=== PATIENT | female | born 1990 | race Hispanic/Latino ===

== ENCOUNTER 2017-08-23 09:29 | Emergency (ER) | payer OTHER ==
[2017-08-23 11:28] LABS: Absolute Lymphocytes (CBC) 1.9 K/uL (0.7-4.9); Absolute Monocytes 0.7 K/uL (0.1-1.3); Basophils % 0.2 % (0-1.3); Eosinophils % 1.2 % (0-4.4); Hematocrit 39.8 % (36.0-45.0); Lymphocytes % 19.1 % (15.3-44.8); MCH 28.9 pg (27.0-35.0); MCV 86.7 fL (80-100); MPV 9.2 fL (7.6-11.3); Monocytes % 6.9 % (3.3-12.3)
[2017-08-23 11:38] LABS: Bicarbonate 26 mEq/L (21-31); Glucose Level 94 mg/dL (65-120); Potassium 3.7 mEq/L (3.6-5.0); Sodium Level 136 mEq/L (135-145)
[2017-08-23 11:39] LABS: BUN Blood Urea Nitrogen 9 mg/dL (6-20)
[2017-08-23 11:49] LABS: Urine Blood 2+ (NEG); Urine Glucose NEGATIVE (NEG); Urine Protein NEGATIVE (NEG)
--- NOTE | 2017-08-23 13:22 | RAD REPORT ---
EXAM DESCRIPTION: US - Transvaginal OB - 08/23/2017 1:03 pm CLINICAL HISTORY: Vaginal bleeding. COMPARISON: None. FINDINGS: A single gestational sac is seen within the uterus. The mean sac diameter is 9 mm correspo nding to 5 weeks 4 days. No yolk sac or embryo is detected at this time. Both ovaries are normal in size, shape and echotexture with normal Doppler blood flow. No adnexal mas ses. No pelvic ascites. IMPRESSION: Findings are compatible with early IUP although no yolk sac or embryo is currently seen. It is recommended the patient undergo a followup ultrasound in 7-10 days. Serial HCG levels is also s uggested.
--- NOTE | 2017-08-23 13:26 | ER ---
Nurse's Notes [facility] Name: Esperanza Ross Age: 26 yrs Sex: Female : 1990 Arrival Date: 08/23/2017 Time: 09:34 Bed 18 Private MD: None, None Diagnosis: Threatened Presentation: 08/23 09:55 Presenting complaint: Patient states: Vaginal spotting for 6 days with small clot this aj AM. Patient is 8 weeks . Transition of care: patient was not received from another setting of care. Onset of symptoms was August 10, 2017. Initial Sepsis Screen: Does the patient meet any 2 criteria? No. Patient's initial sepsis screen is negative. Does the patient have a suspected source of infection? No. Patient's initial sepsis screen is negative. Care prior to arrival: None. 09:55 Method Of Arrival: Ambulatory 09:55 Acuity: ARMAND 3 aj Triage Assessment: 09:57 General: Appears in no apparent distress. comfortable, Behavior is calm, cooperative, aj appropriate for age. Pain: Complains of pain in low back area Pain currently is 1 out of 10 on a pain scale. Neuro: Level of Consciousness is awake, alert, obeys commands, Oriented to person, place, time, situation. Respiratory: Airway is patent Respiratory effort is even, unlabored, Respiratory pattern is regular, symmetrical. : Reports vaginal bleeding that is with clots, spotty. Derm: Skin is intact, is healthy with good turgor, Skin is pink, warm \\T\\ dry. normal. 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 - Social history:: Smoking status: Patient/guardian denies using tobacco. Screenin:51 Abuse screen: Denies threats or abuse. Nutritional screening: No deficits noted. ae1 Tuberculosis screening: No symptoms or risk factors identified. Fall Risk None identified. Assessment: 11:28 Obstetrical Assessment: General assessment: awake and alert, Patient reports suprapubic ae1 pain described as "stretching". General: Appears in no apparent distress. comfortable, Behavior is calm, cooperative. Pain: Complains of pain in suprapubic area Pain currently is 2 out of 10 on a pain scale. Neuro: Level of Consciousness is awake, alert, obeys commands, Oriented to person, place, time, situation. Cardiovascular: Patient's skin is warm and dry. Cardiovascular: Heart tones S1 S2. Respiratory: Airway is patent Respiratory effort is even, unlabored, Respiratory pattern is regular, symmetrical, Breath sounds are clear bilaterally. Vital Signs: 09:57 BP 118 / 77; Pulse 85; Resp 16; Temp 98.0; Pulse Ox 98% on R/A; Weight 66.22 kg; Height aj 5 ft. 3 in. (160.02 cm); Pain 1/10; 11:35 BP 118 / 66; Pulse 82; Resp 16; Pulse Ox 100% on R/A; mh5 13:52 BP 122 / 64; Pulse 82; Resp 16; Pulse Ox 98% ; ae1 09:57 Body Mass Index 25.86 (66.22 kg, 160.02 cm) aj Vitals: 13:47 Heart Tones Please see ultrasound. ae1 ED Course: 09:34 Patient arrived in ED. mr 09:34 None, None is Private Physician. mr 09:56 Triage completed. aj 09:57 Arm band placed on left wrist. Patient placed in waiting room. aj 10:42 Isrrael Marie, ALEXIS is Primary Nurse. ae1 10:43 Michele Baum PA is PHCP. cp 10:43 Michele Orourke MD is Attending Physician. cp 10:45 Placed in gown. Bed in low position. Call light in reach. Side rails up X 1. Pulse ox ae1 on. NIBP on. Warm blanket given. 11:17 Initial lab(s) drawn, by me, sent to lab. Inserted saline lock: 20 gauge in right jl7 antecubital area, using aseptic technique. Blood collected. 11:19 Radiology exam delayed due to lab results not completed at this time. (HCG) hr test not completed at this time. 13:03 US Transvaginal Ob In Process Unspecified. EDMS 13:51 No provider procedures requiring assistance completed. IV discontinued, intact, ae1 bleeding controlled, No redness/swelling at site. Pressure dressing applied. 13:52 No provider procedures requiring assistance completed. ae1 Administered Medications: No medications were administered Point of Care Testing: Urine : 13:47 hCG Reading: Positive; ae1 Outcome: 13:25 Discharge ordered by . yesy 13:50 Patient left the ED. ae1 13:52 Discharged to home ambulatory, with significant other. ae1 13:52 Condition: stable 13:52 Discharge instructions given to patient, Instructed on discharge instructions, follow up and referral plans. medication usage, Demonstrated understanding of instructions, follow-up care, Prescriptions given X 1. Signatures: Dispatcher [employer] EDMS Kate Hein RN RN aj Rivera, Maria mr Rod, Michele Holguin PA PA cp Elliott, Andrea, RN RN ae1 Martinez, Maria [facility] Leopoldo Delgado RN RN jl7 Corrections: (The following items were deleted from the chart) 11:20 11:17 Inserted saline lock: 22 gauge in right antecubital area, using aseptic jl7 technique. Blood collected. jl7 13:49 10:45 Reassessment: Patient appears in no apparent distress at this time. Patient ae1 states feeling better. ae1
--- NOTE | 2017-08-23 13:26 | EDPHYS ---
Physician Documentation [facility] Name: Esperanza Ross Age: 26 yrs Sex: Female : 1990 Arrival Date: 08/23/2017 Time: 09:34 Bed 18 Private MD: None, None ED Physician Michele Orourke HPI: 08/23 10:49 This 26 yrs old Female presents to ER via Ambulatory with complaints of cp Vaginal Bleeding, + Preg <12wks. 10:49 The patient presents to the emergency department with vaginal bleeding, described as cp spotting. 10:50 course: care: none, Leakage of Fluid: none appreciated, Ultrasound: cp the patient has not had an ultrasound. Previous pregnancies: in previous pregnancies patient has had no complications. Associated signs and symptoms: Pertinent negatives: diarrhea, dysuria, fever, vomiting. 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 - Social history:: Smoking status: Patient/guardian denies using tobacco. ROS: 11:00 Constitutional: Negative for body aches, chills, fever, poor PO intake. cp 11:00 Eyes: Negative for injury, pain, redness, and discharge. cp 11:00 ENT: Negative for drainage from ear(s), ear pain, sore throat, difficulty swallowing, difficulty handling secretions. 11:00 Neck: Negative for pain with movement, pain at rest, stiffness, tenderness. 11:00 Cardiovascular: Negative for chest pain, edema, palpitations. 11:00 Respiratory: Negative for cough, shortness of breath, wheezing. 11:00 Abdomen/GI: Positive for abdominal pain, of the suprapubic area, Negative for nausea, vomiting, diarrhea, constipation, black/tarry stool, rectal bleeding. 11:00 Back: Negative for decreased range of motion, pain with movement, radiated pain. 11:00 : Positive for vaginal bleeding, Negative for urinary symptoms, flank pain. 11:00 Skin: Negative for cellulitis, rash. 11:00 Neuro: Negative for altered mental status, headache, weakness. 11:00 All other systems are negative. Exam: 11:07 Constitutional: The patient appears in no acute distress, alert, awake, non-toxic, well cp developed, well nourished. 11:07 Head/Face: Normocephalic, atraumatic. cp 11:07 Eyes: Periorbital structures: appear normal, Conjunctiva: normal, no exudate, no injection, Sclera: no appreciated abnormality, Lids and lashes: appear normal, bilaterally. 11:07 ENT: External ear(s): are unremarkable, Nose: is normal, Mouth: is normal, Posterior pharynx: is normal, airway is patent, no erythema, no exudate. 11:07 Chest/axilla: Inspection: normal, Palpation: is normal, no crepitus, no tenderness. 11:07 Cardiovascular: Rate: normal, Rhythm: regular. 11:07 Respiratory: the patient does not display signs of respiratory distress, Respirations: normal, no use of accessory muscles, no retractions, no splinting, no tachypnea, labored breathing, is not present, Breath sounds: are clear throughout, no decreased breath sounds, no stridor, no wheezing. 11:07 Abdomen/GI: Inspection: abdomen appears normal, Bowel sounds: active, all quadrants, Palpation: soft, in all quadrants, mild abdominal tenderness, in the suprapubic area, voluntary guarding, is not appreciated, involuntary guarding, is not appreciated. 11:07 Back: pain, is absent, ROM is normal. 11:07 Skin: cellulitis, is not appreciated, no rash present. 11:07 Neuro: Orientation: to person, place \T\ time. Mentation: is normal, Cerebellar function: is grossly normal, Motor: moves all fours, strength is normal, Sensation: is normal, Gait: is steady, at a normal pace, without difficulty. 13:22 : Pelvic Exam: The exam is refused by the patient/guardian. The risks and cp consequences are understood by the patient, Sexual behavior: the patient is sexually active, and reports a single partner, method of control is none. Vital Signs: 09:57 BP 118 / 77; Pulse 85; Resp 16; Temp 98.0; Pulse Ox 98% on R/A; Weight 66.22 kg; Height aj 5 ft. 3 in. (160.02 cm); Pain 1/10; 11:35 BP 118 / 66; Pulse 82; Resp 16; Pulse Ox 100% on R/A; mh5 13:52 BP 122 / 64; Pulse 82; Resp 16; Pulse Ox 98% ; ae1 09:57 Body Mass Index 25.86 (66.22 kg, 160.02 cm) aj MDM: 10:43 Patient medically screened. kamryn 11:00 Differential diagnosis: STD, threatened Ab, inevitable Ab, ectopic . 13:24 Data reviewed: vital signs, nurses notes, lab test result(s), radiologic studies, ultrasound, and as a result, I will discharge patient. 08/23 10:49 Order name: Quantitative Hcg 08/23 10:49 Order name: Abo/rh Typing 08/23 10:49 Order name: Basic Metabolic Panel 08/23 10:49 Order name: CBC with Diff 08/23 10:49 Order name: HCG, Quantitative; Complete Time: 13:06 [facility] 08/23 13:07 Interpretation: HCGQ 6268.0; Reviewed. 08/23 10:49 Order name: ABO/RH typing; Complete Time: 13:23 [facility] 08/23 10:49 Order name: Urine Test (obtain specimen); Complete Time: 11:07 08/23 10:49 Order name: IV Saline Lock; Complete Time: 11:21 08/23 10:49 Order name: Labs collected and sent; Complete Time: 11:21 08/23 10:49 Order name: US Transvaginal Ob; Complete Time: 13:23 08/23 10:49 Order name: Basic Metabolic Panel; Complete Time: 13:06 [facility] 08/23 10:49 Order name: CBC with Automated Diff; Complete Time: 13:06 [facility] 08/23 13:07 Interpretation: Normal except: MCV 86.7; MCH 28.9. 08/23 10:57 Order name: Urine Dipstick--Ancillary (enter results); Complete Time: 13:06 [facility] 08/23 10:57 Order name: Urine --Ancillary (enter results); Complete Time: 13:06 [facility] 08/23 10:49 Order name: NPO; Complete Time: 11:07 cp 08/23 10:49 Order name: Urine Dipstick-Ancillary (obtain specimen); Complete Time: 11:08 cp Administered Medications: No medications were administered Point of Care Testing: Urine : 13:47 hCG Reading: Positive; ae1 Disposition: 19:07 Co-signature as Attending Physician, Michele Orourke MD I agree with the assessment and [facility] plan of care. Disposition: 08/23/17 13:25 Discharged to Home. Impression: Threatened . - Condition is Stable. - Discharge Instructions: Medicines During , Threatened Miscarriage, Pelvic Rest. - Prescriptions for Vitamin 27- 0.8 mg Oral Tablet - take 1 tablet by ORAL route once daily; 60 tablet. - Medication Reconciliation Form, Thank You Letter, Antibiotic Education, Prescription Opioid Use form. 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 - Problem is new. - Symptoms are unchanged. Signatures: Dispatcher [employer] Kate Toussaint, RN Michele Rocha MD MD cha Page, Corey, PA PA sIrrael Burger RN RN ae1
[2017-08-23 13:54] VITALS: TEMP 98
[2017-08-23 13:55] VITALS: BP 118/66; O2SAT 100
== END 2017-08-23 13:50 | disposition home or self-care (01) ==
LOC: ER 09:29
DX: O20.0 Threatened abortion (principal); Z3A.13 13 weeks gestation of pregnancy
CPT/HCPCS: 36415; 76817; 80048; 81003; 81025; 84702; 85025; 86900; 86901; 99284

== ENCOUNTER 2017-08-26 21:00 | Emergency (ER) | payer OTHER ==
[2017-08-26 22:08] LABS: Absolute Lymphocytes (CBC) 2.9 K/uL (0.7-4.9); Absolute Monocytes 0.9 K/uL (0.1-1.3); Absolute Neutrophil 7.2 K/uL (1.8-8.0); Basophils % 0.2 % (0-1.3); Eosinophils % 1.6 % (0-4.4); Hematocrit 41.6 % (36.0-45.0); Lymphocytes % 25.5 % (15.3-44.8); MCH 28.2 pg (27.0-35.0); MPV 9.6 fL (7.6-11.3); Monocytes % 8.3 % (3.3-12.3); RBC Red Blood Cell Count 4.78 M/uL (3.86-4.86)
[2017-08-26 22:30] LABS: Blood Morphology Comment NOT SEEN (NOT SEEN); Platelet Estimate ADEQ; Urine White Blood Cell Casts OK
--- NOTE | 2017-08-27 00:31 | EDPHYS ---
Physician Documentation [facility] Name: Esperanza Ross Age: 26 yrs Sex: Female : 1990 Arrival Date: 08/26/2017 Time: 21:03 Bed 26 Private MD: ED Physician Gilbert Jeffrey HPI: 08/26 21:44 This 26 yrs old Female presents to ER via Ambulatory with complaints of kb Vaginal Bleeding, + Preg <12wks. 21:44 The patient presents to the emergency department with vaginal bleeding, that is light. kb course: care: private OB physician, Dr. kemp, first appt scheduled, has not seen her yet, Leakage of Fluid: none appreciated, Ultrasound: the patient had an ultrasound, on August 23, 2017, which was normal, Risk/complications: no obvious risks or complications are appreciated. Previous pregnancies: in previous pregnancies patient has had. Associated signs and symptoms: Pertinent positives: abdominal pain, vaginal bleeding. The patient has not experienced similar symptoms in the past. The patient has been recently seen at the [facility] Emergency Department, this week, for similar complaints. 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 - Social history:: Smoking status: Patient/guardian denies using tobacco. ROS: 21:44 Constitutional: Negative for fever, chills, and weight loss, Cardiovascular: Negative kb for chest pain, palpitations, and edema, Respiratory: Negative for shortness of breath, cough, wheezing, and pleuritic chest pain, Back: Negative for injury and pain, MS/Extremity: Negative for injury and deformity, Skin: Negative for injury, rash, and discoloration, Neuro: Negative for headache, weakness, numbness, tingling, and seizure. 21:44 Abdomen/GI: Positive for abdominal pain, Negative for nausea, vomiting, and diarrhea, constipation, abdominal cramps, abdominal distension, anorexia. 21:44 : Positive for vaginal bleeding. Exam: 21:44 Constitutional: This is a well developed, well nourished patient who is awake, alert, kb and in no acute distress. Head/Face: Normocephalic, atraumatic. Chest/axilla: Normal chest wall appearance and motion. Nontender with no deformity. No lesions are appreciated. Cardiovascular: Regular rate and rhythm with a normal S1 and S2. No gallops, murmurs, or rubs. Normal PMI, no JVD. No pulse deficits. Respiratory: Lungs have equal breath sounds bilaterally, clear to auscultation and percussion. No rales, rhonchi or wheezes noted. No increased work of breathing, no retractions or nasal flaring. Abdomen/GI: Soft, non-tender, with normal bowel sounds. No distension or tympany. No guarding or rebound. No evidence of tenderness throughout. Skin: Warm, dry with normal turgor. Normal color with no rashes, no lesions, and no evidence of cellulitis. MS/ Extremity: Pulses equal, no cyanosis. Neurovascular intact. Full, normal range of motion. Neuro: Awake and alert, GCS 15, oriented to person, place, time, and situation. Cranial nerves II-XII grossly intact. Motor strength 5/5 in all extremities. Sensory grossly intact. Cerebellar exam normal. Normal gait. 23:34 : Pelvic Exam: External exam: is normal, Speculum exam: mild bleeding, no cervicitis, kb os that is open, no tissue in cervix is seen, no tissue in vagina is seen, discharge, bloody, the nurse was present for the exam. Vital Signs: 21:16 BP 127 / 100; Pulse 86; Resp 19; Temp 97.4; Pulse Ox 100% on R/A; Weight 66.22 kg; la1 Height 5 ft. 3 in. (160.02 cm); 23:39 BP 119 / 65; Pulse 62; Resp 16; Temp 97.6(O); Pulse Ox 100% on R/A; Pain 2/10; ak1 21:16 Body Mass Index 25.86 (66.22 kg, 160.02 cm) la1 MDM: 21:39 Patient medically screened. kb 21:44 Data reviewed: vital signs, nurses notes. Data interpreted: Pulse oximetry: on room air kb is 100 %. Interpretation: normal. 08/27 00:20 Physician consultation: Rocky Durbin MD was called at 00:20, left voicemail. kb 00:29 Counseling: I had a detailed discussion with the patient and/or guardian regarding: the kb historical points, exam findings, and any diagnostic results supporting the discharge/admit diagnosis, lab results, radiology results, the need for outpatient follow up, an OB/Gyne specialist, to return to the emergency department if symptoms worsen or persist or if there are any questions or concerns that arise at home. Physician consultation: Rocky Durbin MD was contacted at 00:29, regarding consult, patient's condition, recommended cytotec 100mcg PO q 6 hours x 4 doses and outpatient follow up . 08/26 21:44 Order name: CBC with Diff; Complete Time: 22:43 kb 08/26 21:44 Order name: Quantitative Hcg; Complete Time: 22:56 kb 08/26 22:30 Order name: CBC Smear Scan; Complete Time: 22:43 EDMS 08/26 23:02 Order name: US Transvaginal Ob kb 08/26 23:02 Order name: Pelvic Exam Setup; Complete Time: 23:32 kb Administered Medications: No medications were administered Point of Care Testing: Urine : 00:43 N/A ak1 Disposition: 03:14 Co-signature as Attending Physician, Gilbert Jeffrey MD I agree with the assessment and tw4 plan of care. Disposition: 08/27/17 00:31 Discharged to Home. Impression: Incomplete spontaneous without complication. - Condition is Stable. - Discharge Instructions: Incomplete Miscarriage. - Prescriptions for Cytotec 100 mcg Oral tablet - take 1 tablet by ORAL route every 6 hours; 4 tablet. - Medication Reconciliation Form, Thank You Letter, Antibiotic Education, Prescription Opioid Use form. - Follow up: Emergency Department; When: As needed; Reason: Worsening of condition. Follow up: Rocky Durbin MD; When: 1 - 2 days; Reason: Recheck today's complaints. Follow up: Hilary Kepm MD; When: 1 - 2 days; Reason: Recheck today's complaints. Signatures: Dispatcher [employer] EDTX Diandra Root, SANDRA-C SHELTER MONITOR-Erickson Manning RN RN la1 Bhavana Bull RN RN ak1 Gilbert Jeffrey MD MD tw4
--- NOTE | 2017-08-27 00:31 | ER ---
Nurse's Notes [facility] Name: Esperanza Ross Age: 26 yrs Sex: Female : 1990 Arrival Date: 08/26/2017 Time: 21:03 Bed 26 Private MD: Diagnosis: Incomplete spontaneous without complication Presentation: 08/26 21:15 Presenting complaint: Patient states: About 3 weeks ago I had vaginal bleeding but it la1 is getting worse and my OB pushed my appointment back. Transition of care: patient was not received from another setting of care. Onset of symptoms was August 26, 2017. Initial Sepsis Screen: Does the patient meet any 2 criteria? No. Patient's initial sepsis screen is negative. Does the patient have a suspected source of infection? No. Patient's initial sepsis screen is negative. Care prior to arrival: None. 21:15 Method Of Arrival: Ambulatory la1 21:15 Acuity: ARMAND 3 la1 Triage Assessment: 22:01 General: Appears in no apparent distress. Behavior is calm, cooperative. Pain: Denies ak1 pain. EENT: No signs and/or symptoms were reported regarding the EENT system. Neuro: No deficits noted. Cardiovascular: No deficits noted. Respiratory: No deficits noted. GI: No signs and/or symptoms were reported involving the gastrointestinal system. : Reports vaginal bleeding that is bright red, with clots, moderate flow. Derm: No signs and/or symptoms reported regarding the dermatologic system. Musculoskeletal: No signs and/or symptoms reported regarding the musculoskeletal system. 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 - Social history:: Smoking status: Patient/guardian denies using tobacco. Screenin:46 Abuse screen: Denies threats or abuse. Denies injuries from another. Nutritional ak1 screening: No deficits noted. Tuberculosis screening: No symptoms or risk factors identified. Fall Risk None identified. Assessment: 23:32 Obstetrical Assessment: General assessment: awake and alert, skin warm and dry. ak1 Reassessment: Patient appears in no apparent distress at this time. No changes from previously documented assessment. Patient is alert, oriented x 3, equal unlabored respirations, skin warm/dry/pink. Vital Signs: 21:16 BP 127 / 100; Pulse 86; Resp 19; Temp 97.4; Pulse Ox 100% on R/A; Weight 66.22 kg; la1 Height 5 ft. 3 in. (160.02 cm); 23:39 BP 119 / 65; Pulse 62; Resp 16; Temp 97.6(O); Pulse Ox 100% on R/A; Pain 2/10; ak1 21:16 Body Mass Index 25.86 (66.22 kg, 160.02 cm) la1 Vitals: 23:32 Heart Tones N/A. ak1 ED Course: 21:03 Patient arrived in ED. es 21:15 Diandra Root FNP-C is PHCP. kb 21:15 Gilbert Jeffrey MD is Attending Physician. kb 21:16 Triage completed. la1 21:18 Arm band placed on right wrist. la1 21:45 Bhavana Bull, RN is Primary Nurse. ak1 22:03 Patient has correct armband on for positive identification. Bed in low position. Call ak1 light in reach. Side rails up X 1. Adult w/ patient. 23:33 Assist provider with pelvic exam: Set up pelvic tray. Performed by Diandra AVALOS Patient tolerated well. 08/27 00:11 US Transvaginal Ob In Process Unspecified. EDMS 00:11 Ultrasound completed. Patient tolerated well. Notified TRAY CHECKER/PA prelim given to ordering cy provider. . 00:31 Rocky Durbin MD is Referral Physician. kb 00:31 Hilary Son MD is Referral Physician. kb 00:44 Patient did not have IV access during this emergency room visit. ak1 Administered Medications: No medications were administered Point of Care Testing: Urine : 00:43 N/A ak1 Outcome: 00:31 Discharge ordered by . kb 00:44 Discharged to home ambulatory, with family. ak1 00:44 Condition: good 00:44 Discharge instructions given to patient, Instructed on discharge instructions, follow up and referral plans. medication usage, Demonstrated understanding of instructions, follow-up care, medications, Prescriptions given X 1. 00:44 Patient left the ED. ak1 Signatures: Dispatcher [employer] EDHI Dk Diandra, SHOE REPAIRER APPRENTICE-C SHOE REPAIRER APPRENTICE-Ckb Jocelyne Elise Lee RN RN la1 Bhavana Bull RN RN ak1 Hernandez Booth
[2017-08-27 01:02] VITALS: O2SAT 100
[2017-08-27 01:04] VITALS: BP 119/65; TEMP 97.6
--- NOTE | 2017-08-27 08:02 | RAD REPORT ---
EXAM DESCRIPTION: US - Transvaginal OB - 08/27/2017 12:11 am CLINICAL HISTORY: with abdominal pain and vaginal bleeding COMPARISON: August 23, 2017 FINDINGS: The uterus is retroverted and measures 7 x 5 x 6 centimeters. A gestational sac is presen t within the endometrium. The sac measures 1.1 x 1.1 x 1.1 centimeters. A pole is not seen. A y olk sac is not visualized. A small subchorionic bleed measures 9 x 3 millimeters. The ovaries are normal in size and echotexture. No significant free fluid is seen. IMPRESSION: These findings most likely represent an intrauterine with an estimated gestati onal age 5 weeks 5 days SITA 04/23/2018. A pole/yolk sac is not seen. It is recommended that the patient have serial beta HCG levels and a follow up ultrasound in 1 week for reassessment.
== END 2017-08-27 00:44 | disposition home or self-care (01) ==
LOC: ER 21:00
DX: O03.4 Incomplete spontaneous abortion without complication (principal)
CPT/HCPCS: 36415; 76817; 84702; 85025; 99284

== ENCOUNTER 2018-11-21 03:24 | Inpatient (IN) | payer OTHER ==
--- OUTSIDE RECORDS SUMMARY | 2018-11-21 07:45 | XMS REPORT ---
:1990 Author Organization [employer] Care Team Providers Name Role Phone Hilary Son Provider Role Unavailable Allergies No Known Allergies Problems Problem Type Condition Code Onset Dates Condition Status Problem Threatened O20.0 Active Problem Personal history of pre-term labor Z87.51 Active Medications No Known Medications Results No Known Results Summary Purpose [employer] Submission
--- OUTSIDE RECORDS SUMMARY | 2018-11-21 07:45 | XMS REPORT ---
:1990 Author Organization eClinicalWorks Care Team Providers Name Role Phone Devang Huitron Provider Role Unavailable Allergies No Known Allergies Problems Problem Type Condition Code Onset Dates Condition Status Problem Threatened O20.0 Active Problem Personal history of pre-term labor Z87.51 Active Medications Medication Code System Code Instructions Start End Date Status Dosage Date Ferralet 90 [facility] [id number] 90-1 MG Orally September 16, Active 1 tablet Once a day 2018 Results No Known Results Summary Purpose eClinicalWorks Submission
--- OUTSIDE RECORDS SUMMARY | 2018-11-21 07:45 | XMS REPORT ---
:1990 Author Organization eClinicalWorks Care Team Providers Name Role Phone Devang Huitron Provider Role Unavailable Allergies No Known Allergies Problems Problem Type Condition Code Onset Dates Condition Status Problem Threatened O20.0 Active Problem Personal history of pre-term labor Z87.51 Active Assessment High risk due to history O09.212 Active of labor in second trimester Medications Medication Code Code Instructions Start End Status Dosage System Date Date CitraNatal [facility] [id number] 35-1 & 300 MG May 14, Active as directed Assure Orally 2019 Results No Known Results Summary Purpose eClinicalWorks Submission
--- OUTSIDE RECORDS SUMMARY | 2018-11-21 07:45 | XMS REPORT ---
:1990 Author Organization eClinicalWorks Care Team Providers Name Role Phone Devang Hiutron Provider Role Unavailable Allergies No Known Allergies Problems Problem Type Condition Code Onset Dates Condition Status Problem Supervision of high risk O09.93 Active in third trimester Problem Personal history of pre-term labor Z87.51 Active Problem History of delivery, O09.219 Active currently Problem Threatened O20.0 Active Medications Medication Code Code Instructions Start End Status Dosage System Date Date Ferralet 90 [facility] 86994859280 90-1 MG Orally November 01, Active 1 tablet Once a day 2019 after a meal CitraNatal 90 [place] 84343968136 90-1 & 300 MG November 01, Active as directed DHA Orally once a 2019 day Results No Known Results Summary Purpose eClinicalWorks Submission
--- OUTSIDE RECORDS SUMMARY | 2018-11-21 07:45 | XMS REPORT ---
[...] End Status Dosage System Date Date CitraNatal [facility] [id number] 35-1 & 300 MG May 14, Active as directed Assure Orally 2019 Results No Known Results Summary Purpose eClinicalWorks Submission
--- OUTSIDE RECORDS SUMMARY | 2018-11-21 07:45 | XMS REPORT ---
:1990 Author Organization eClinicalWorks Care Team Providers Name Role Phone Devang Huitron Provider Role Unavailable Allergies No Known Allergies Problems Problem Type Condition Code Onset Dates Condition Status Problem Threatened O20.0 Active Problem Personal history of pre-term labor Z87.51 Active Medications Medication Code Code Instructions Start End Status Dosage System Date Date CitraNatal [facility] [id number] 35-1 & 300 MG May 14, Active as directed Assure Orally 2019 Results No Known Results Summary Purpose eClinicalWorks Submission
--- OUTSIDE RECORDS SUMMARY | 2018-11-21 07:45 | XMS REPORT ---
[...] Status Dosage System Date Date CitraNatal [facility] [id number] 35-1 & 300 MG May 14, Active as directed Assure Orally 2019 Results No Known Results Summary Purpose eClinicalWorks Submission
--- OUTSIDE RECORDS SUMMARY | 2018-11-21 07:45 | XMS REPORT ---
:1990 Author Organization eClinicalWorks Care Team Providers Name Role Phone Devang Huitron Provider Role Unavailable Allergies No Known Allergies Problems Problem Type Condition Code Onset Dates Condition Status Problem Supervision of high risk O09.93 Active in third trimester Problem Personal history of pre-term labor Z87.51 Active Problem History of delivery, O09.219 Active currently Assessment Supervision of high risk O09.93 Active in third trimester Problem Threatened O20.0 Active Medications No Known Medications Results No Known Results Summary Purpose eClinicalWorks Submission
--- OUTSIDE RECORDS SUMMARY | 2018-11-21 07:45 | XMS REPORT ---
[...] End Status Dosage System Date Date CitraNatal [facility] [place] [id number] 35-1 & 300 MG May 14, Active as directed Assure Orally 2019 Results No Known Results Summary Purpose eClinicalWorks Submission
--- OUTSIDE RECORDS SUMMARY | 2018-11-21 07:45 | XMS REPORT ---
:1990 Author Organization eClinicalWorks Care Team Providers Name Role Phone Devang Huitron Provider Role Unavailable Allergies, Adverse Reactions, Alerts Substance Reaction Event Type N.K.D.A. Info Not Available Non Drug Allergy Problems Problem Type Condition Code Onset Dates Condition Status Problem Threatened O20.0 Active Problem Personal history of pre-term labor Z87.51 Active Assessment Encounter to determine O36.80X0 Active viability of , single or unspecified fetus Assessment Personal history of pre-term labor Z87.51 Active Assessment Amenorrhea N91.2 Active Assessment Encounter for supervision of Z34.91 Active low-risk in first trimester Medications No Known Medications Results Name Result Date Reference Unit Abnormality Flag Range CULTURE, URINE, ROUTINE ----CULTURE, URINE, SEE NOTE [id number] ROUTINE VARICELLA ZOSTER VIRUS AB (IGG) ----VARICELLA ZOSTER 546.90 20180509 index N VIRUS ANTIBODY (IGG) URINALYSIS AUTO W/O SCOPE (09286) ----NIT neg [id number] ----URO 0.2 20180511 ----PROTEIN neg 20180511 ----pH 7.0 20180511 ----BLO 1+ 20180511 ----GLUCOSE neg 20180511 ----RAQUEL TRACE 20180511 ----BILIRUBIN neg 20180511 ----KETONES 2+ 20180511 ----SPECIFIC GRAVITY 1.020 20180511 OBSTETRIC PANEL ----BASOPHILS 0.2 20180509 % N ----ANTIBODY SCREEN, NO ANTIBODIES 20180509 N RBC W/REFL ID, TITER DETECTED AND AG ----ABO GROUP O 20180509 ----RH TYPE RH(D) POSITIVE 20180509 ----HEMATOCRIT 36.0 20180509 35.0-45.0 % N ----MCV 88.2 20180509 80.0-100.0 fL N ----RED BLOOD CELL 4.08 25859901 3.80-5.10 Million/uL N COUNT ----HEMOGLOBIN 12.2 57129937 11.7-15.5 g/dL N ----RPR (DX) W/REFL NON-REACTIVE 20180509 NON-REACTIVE N TITER AND CONFIRMATORY TESTING ----HEPATITIS B NON-REACTIVE 20180509 NON-REACTIVE N SURFACE ANTIGEN ----WHITE BLOOD CELL 12.2 50926890 3.8-10.8 Thousand/u H COUNT L ----RUBELLA ANTIBODY <0.90 49167819 index L (IGG) ----MCHC 33.9 97982984 32.0-36.0 g/dL N ----MCH 29.9 48285553 27.0-33.0 pg N ----PLATELET COUNT 255 59215252 140-400 Thousand/u N L ----RDW 12.8 40474750 11.0-15.0 % N ----ABSOLUTE 9357 69424082 8225-4710 cells/uL H NEUTROPHILS ----ABSOLUTE 1989 02019897 850-3900 cells/uL N LYMPHOCYTES ----MPV 11.5 14649807 7.5-12.5 fL N ----ABSOLUTE 24 56615946 0-200 cells/uL N BASOPHILS ----NEUTROPHILS 76.7 40324373 % N ----ABSOLUTE 781 33857339 200-950 cells/uL N MONOCYTES ----ABSOLUTE 49 10242994 15-500 cells/uL N EOSINOPHILS ----EOSINOPHILS 0.4 01411865 % N ----LYMPHOCYTES 16.3 24774038 % N ----MONOCYTES 6.4 60854845 % N THINPREP TIS PAP W/REFL HPV RNA HR E6/E7,TMA ----SOURCE: None given 93679674 N ----PREV. BX: NONE GIVEN 89478960 N ----PREV. PAP: NONE GIVEN 17742878 N ----LMP: NONE GIVEN 01768849 N ----CLINICAL None given 80510206 N INFORMATION: PAIN MANAGEMENT PROFILE 6 W/CONFIRMATION, W/O medMATCH, U ----Creatinine 175.8 91585808 > or=20.0 mg/dL N ----pH 6.6 71940224 4.5-9.0 N ----Opiates NEGATIVE 49152667 <100 ng/mL N ----Oxidant NEGATIVE 84584168 <200 mcg/mL N ----Oxycodone NEGATIVE 33740783 <100 ng/mL N ----Phencyclidine NEGATIVE 90435275 <25 ng/mL N ----Alcohol NEGATIVE 42215021 <500 ng/mL N Metabolites ----6 Acetylmorphine NEGATIVE 21185659 <10 ng/mL N ----Cocaine NEGATIVE 22738718 <150 ng/mL N Metabolite ----Methadone NEGATIVE 98442396 <100 ng/mL N Metabolite ----Amphetamines NEGATIVE 32721193 <500 ng/mL N ----Barbiturates NEGATIVE 48543901 <300 ng/mL N ----Benzodiazepines NEGATIVE 10858983 <100 ng/mL N ----Marijuana NEGATIVE 11223826 <20 ng/mL N Metabolite SURESWAB(R) CHLAMYDIA/ N. GONORRHOEAE RNA, TMA ----NEISSERIA NOT DETECTED 20180509 NOT DETECTED N GONORRHOEAE RNA, TMA, UROGENITAL ----CHLAMYDIA NOT DETECTED 20180509 NOT DETECTED N TRACHOMATIS RNA, TMA, UROGENITAL TRICHOMONAS VAGINALIS, QL TMA, PAP VIAL ----TRICHOMONAS NOT DETECTED 20180509 NOT DETECTED N VAGINALIS, QL TMA, PAP VIAL Summary Purpose eClinicalWorks Submission
--- OUTSIDE RECORDS SUMMARY | 2018-11-21 07:45 | XMS REPORT ---
[...] high risk O09.93 Active in third trimester Assessment History of delivery, O09.219 Active currently Problem Threatened O20.0 Active Medications Medication Code Code Instructions Start End Status Dosage System Date Date Ferralet 90 [facility] 56163611420 90-1 MG Orally September 16, Active 1 tablet Once a day 2018 CitraNatal [facility] 53505968030 35-1 & 300 MG May 14, Active as directed Assure Orally 2019 Results No Known Results Summary Purpose eClinicalWorks Submission
--- OUTSIDE RECORDS SUMMARY | 2018-11-21 07:45 | XMS REPORT ---
[...] Status Dosage System Date Date Ferralet 90 [facility] [place] 14778778495 90-1 MG Orally September 16, Active 1 tablet Once a day 2018 CitraNatal [facility] [place] 66365146098 35-1 & 300 MG May 14, Active as directed Assure Orally 2019 Results No Known Results Summary Purpose eClinicalWorks Submission
[2018-11-21] MEDS ORDERED: CARBOPROST TROME 250 MCG/ML IM PRN (08:38)
[2018-11-21] MEDS ORDERED: Ringers Lactate 1,000 ML IV PRN (08:38)
[2018-11-21] MEDS ORDERED: METHYLERGONOVINE 0.2MG/ML AMP IM PRN (08:38)
[2018-11-21 09:00] VITALS: BMI 29.4
[2018-11-21] MEDS ORDERED: OXYTOCIN/LR 20 UNIT/1,000 ML BAG IV SCH (09:00)
[2018-11-21] MEDS ORDERED: Ringers Lactate 1,000 ML IV SCH (09:00)
[2018-11-21 09:20] LABS: RPR Titer ND
[2018-11-21 09:40] LABS: Absolute Lymphocytes (CBC) 1.9 K/uL (0.7-4.9); Basophils % 0.1 % (0-1.3); Eosinophils % 0.5 % (0-4.4); Hematocrit 34.7 % (36.0-45.0); Lymphocytes % 13.1 % (15.3-44.8); MPV 10.2 fL (7.6-11.3); Monocytes % 6.1 % (3.3-12.3); RBC Red Blood Cell Count 3.72 M/uL (3.86-4.86)
[2018-11-21] MEDS ORDERED: FENTANYL CITR 100 MCG/2 ML IV ONE (09:56)
[2018-11-21] MEDS ORDERED: ROPIVACAINE HCL 100 ML IV ONE (09:57)
[2018-11-21] MEDS ORDERED: ROPIVACAINE HCL 0.2% 20ML AMP IV ONE (09:58)
[2018-11-21 10:09] LABS: Urine Appearance CLEAR; Urine Bilirubin NEGATIVE (NEG); Urine Blood 1+ (NEG); Urine Color YELLOW; Urine Glucose NEGATIVE (NEG); Urine Protein NEGATIVE (NEG); Urine Specific Gravity <=1.005 (1.005-1.030); Urine pH 7.5 (5.0-7.0)
[2018-11-21 10:19] LABS: Urine Microscopic Reflex ORDER UMIC
[2018-11-21 10:20] LABS: Urine Bacteria 20-50 /HPF (<20); Urine Culture Reflex Order NOT NEEDED; Urine RBC <5 /HPF (NONE SEEN)
[2018-11-21] MEDS ORDERED: LIDOCAINE 1% MPF 30 ML VIAL SQ ONE (11:02)
[2018-11-21] MEDS ORDERED: ONDANSETRON 4 MG (ODT) TAB PO PRN (11:52)
[2018-11-21] MEDS ORDERED: ACETAMINOPHEN 500 MG TAB PO PRN (11:52)
[2018-11-21] MEDS ORDERED: BISACODYL 10 MG RECTAL SUPP RECT PRN (11:52)
[2018-11-21] MEDS ORDERED: Tdap (Diph,Pertuss(Acell),Tet Vac) 0.5 ML SYR IMVAC ONE (11:52)
[2018-11-21] MEDS ORDERED: DOCUSATE NA/SENNA CONC 1 TAB PO PRN (11:52)
[2018-11-21] MEDS ORDERED: METHYLERGONOVINE 0.2 MG TAB PO PRN (11:52)
[2018-11-21] MEDS ORDERED: Oxycodone HCl/Acetaminophen 1 TAB TAB PO PRN (11:52)
[2018-11-21] MEDS: IBUPROFEN 200 MG TAB PO PRN (18:20)
[2018-11-22] MEDS: IBUPROFEN 200 MG TAB PO PRN (02:20)
[2018-11-22 06:40] LABS: Basophils % 0.1 % (0-1.3); Eosinophils % 0.7 % (0-4.4); Lymphocytes % 18.9 % (15.3-44.8); MPV 9.9 fL (7.6-11.3); Monocytes % 6.2 % (3.3-12.3); RBC Red Blood Cell Count 3.69 M/uL (3.86-4.86)
[2018-11-22 15:29] VITALS: BP 115/50; TEMP 97.6
--- NOTE | 2018-11-22 23:05 | P.OP ---
Date of Service: 11/21/18 Findings and Operative Technique Patient delivered a viable female in cephalic presentation on 11/22/18 at 11:32. was delivered over a midline episiotomy. Once infant was delivered the nose and mouth were suctioned with a suction bulb and cord was clamped and cut. Infant was then placed on mother's abdomen for skin to skin bonding. Cord blood was then obtained. Placenta was then delivered with gentle traction. Placenta was examined and found to be intact. Attention was then turned to the episiotomy which was noted to be a first degree. This was repaired with a 2.0 vicryl in a usual fashion. EBL was 250cc. APGARS were 8/9. Infant weight was found to be 7 lb 10 ounces. Both mom and baby are doing well. First stage of labor was 1 hour and 50 minutes. Second stage of labor was 12 minutes.
[2018-11-23 03:15] LABS: RPR (Rapid Plasma Reagin) NON-REACT (NON-REACT)
[2018-11-23 20:30] LABS: HBsAG Nonreactive (Nonreactive)
== END 2018-11-22 14:00 | disposition home or self-care (01) | DRG 807 ==
LOC: 2ND-WC 07:38
PROVIDERS: ADMIT Student in an Organized Health Care Education/Training Program; ATTEND Student in an Organized Health Care Education/Training Program
PROC: 10E0XZZ Delivery of Products of Conception, External Approach (ICD-10-PCS; principal; 2018-11-21)
PROC: 0W8NXZZ Division of Female Perineum, External Approach (ICD-10-PCS; 2018-11-21)
PROC: 3E033VJ Introduction of Other Hormone into Peripheral Vein, Percutaneous Approach (ICD-10-PCS; 2018-11-21)
DX: O80 Encounter for full-term uncomplicated delivery (principal); Z37.0 Single live birth; Z3A.39 39 weeks gestation of pregnancy
CPT/HCPCS: 36415; 81003; 81015; 85025; 86592; 86850; 86900; 86901; 87340; J2210; J2590; J2795; J3010

== ENCOUNTER 2019-11-12 01:31 | Emergency (ER) | payer OTHER, SELFPAY ==
[2019-11-12 02:00] LABS: Absolute Lymphocytes (CBC) 3.7 K/uL (0.7-4.9); Basophils % 0.2 % (0-1.3); Hematocrit 39.4 % (36.0-45.0); Lymphocytes % 29.9 % (15.3-44.8); MPV 9.5 fL (7.6-11.3); RBC Red Blood Cell Count 4.49 M/uL (3.86-4.86)
[2019-11-12 02:16] LABS: Urine Blood 1+ (NEG); Urine Glucose NEGATIVE (NEG); Urine Protein NEGATIVE (NEG); Urine Specific Gravity 1.025 (1.005-1.030)
[2019-11-12 02:16] LABS: Urine Specific Gravity 1.025 (1.005-1.030)
[2019-11-12 02:21] LABS: ALT/SGPT 34 U/L (12-78); AST/SGOT 24 U/L (15-37); Alkaline Phosphatase 95 U/L (45-117); BUN Blood Urea Nitrogen 13 mg/dL (7-18); Bicarbonate 24 mmol/L (21-32); Bilirubin Direct < 0.1 mg/dL (0-0.2); Bilirubin Total 0.2 mg/dL (0.2-1.0); Glucose Level 101 mg/dL (74-106); Lipase 76 U/L (73-393); Potassium 3.1 mmol/L (3.5-5.1); Sodium Level 138 mmol/L (136-145)
[2019-11-12] MEDS ORDERED: MAGNE/ALUM HYDROXD 30 ML UCUP ONE (03:00)
[2019-11-12] MEDS ORDERED: LIDOCAINE VISCOUS 2% SOLN 15 ML UDC ONE (03:00)
--- OUTSIDE RECORDS SUMMARY | 2019-11-12 03:05 | XMS REPORT | Continuity of Care Document ---
:1990 Author Organization [facility] t Address [address] [place] [address] [address]. [address]u [address] [place] [address] Care Team Providers Name Role Phone Unavailable Unavailable Unavailable Problems Condition Condition Condition Status Onset Resolution Last Treating Co mments Source Name Details Category Date Date Treatment Clinician Date Threatened Threatened Problem [facility] Personal Personal Problem [facility] of Shira kes - pre-term pre-term [facility] a labor [facility] Supervisio Supervisio Problem Active [facility] - risk risk Mem[facility] l in third in third Outpat i trimester trimester ent Clinics History of History of Problem Active [facility], delivery, Jabari celia currently currently l Outpat i ent Clinics Encounter Encounter Diagnosis Active [facility] - routine routine Memoria checking checking l of of Outpati intrauteri intrauteri en t ne ne Clinics contracept contracept davis device davis device (IUD) (IUD) Amenorrhea Amenorrhea Diagnosis Active [facility] Allergies, Adverse Reactions, Alerts This patient has no known allergies or adverse reactions. Medications Ordered Filled Start Stop Current Ordering Indication Dosage Frequency Signature Comments Components Source Medication Medication Date Date Medication? Clinician (SIG) Name Name CitraNatal CitraNatal Yes Devang as [facility]HA 90 [facility] 6-28 Rekhi [facility]: Memoria 00 l [facility] ent [facility] Ferralet 90 Ferralet 90 Yes Devang [address] 6-28 Rekhi after a [facility] - 00:00: meal Memoria 00 l [facility] ent [facility] CitraNatal CitraNatal Yes Devang as [facility] Assure Assure 1-08 Rekhi directed [facility]: [address] Procedures This patient has no known procedures. Encounters Start End Encounter Admission Attending Care Care Encounter Source Date/Time Date/Time Type Type Clinicians Facility Department ID 2019-01-21 2019-01-21 [facility] [id number] [address] 10[facility]30[facility]00 10:30[facility]00 [facility] - Care [facility] 2018-12-30 2018-12-30 [facility] [id number] 08:47:00 08:47:00 t [facility] - Care [facility] 2018-12-24 2018-12-24 [facility] [id number] 10:30:00 10:30:00 t [facility] - Care [facility] 2018-11-20 2018-11-20 [facility] [id number] 13:45:00 13:45:00 t [facility]ens [facility] Care [facility] - Care [facility] 2018-11-12 2018-11-12 [facility] [id number] 11:00:00 11:00:00 t [facility]ens [facility]ens Care [facility] - Care [facility] 2018-11-05 2018-11-05 [facility] [id number] 11:00:00 11:00:00 t [facility] - Care [facility] 2018-11-01 2018-11-01 [facility] [id number] 13:46:00 13:46:00 t [facility]ens [facility]ens Care [facility] - Care [facility] 2018-10-28 2018-10-28 [facility] [id number] 13:30:00 13:30:00 t [facility]ens [facility]omens Care [facility] - Care [facility] 2018-10-21 2018-10-21 [facility] [id number] 13:30:00 13:30:00 t Womens Womens Care L ukes - Care [facility] 2018-09-16 2018-09-16 [facility] [id number] 16:54:00 16:54:00 t Womens Womens Care L [facility] - Care [facility] 2018-09-16 2018-09-16 [facility] [id number] 14:15:00 14:15:00 t [facility]ens [facility] - Care [facility] 2018-08-30 2018-08-30 [facility] [id number] 15:55:00 15:55:00 t Womens Womens Care [facility] - Care [facility] 2018-08-12 2018-08-12 [facility] [id number] 13:30:00 13:30:00 t Womens Womens Care [facility] - Care [facility] 2018-07-12 2018-07-12 [facility] [id number] 10:30:00 10:30:00 t Womens Womens Care [facility] - Care [facility] 2018-06-11 2018-06-11 [facility] [id number] 09:30:00 09:30:00 t Womens W[facility]ens Care [facility] 2018-05-14 2018-05-14 [facility] [id number] [facility] 15:50:00 15:50:00 t [facility]omens [facility] - Care [facility] 2018-05-09 2018-05-09 [facility] [id number] 09:45:00 09:45:00 t [facility]ens [facility] - Care [facility] 2018-05-02 2018-05-02 [facility] [id number] 09:10:00 09:10:00 t [facility] - Care [facility] 2017-09-04 2017-09-04 [facility] [id number] 13:35:00 13:35:00 [facility] 2017-08-29 2017-08-29 Outpatient Micah Villalobos [id number] [facility] 10:00:00 10:00:00 [facility] Results This patient has no known results.
--- NOTE | 2019-11-12 04:06 | ER ---
Nurse's Notes [facility] Name: Esperanza Ross Age: 29 yrs Sex: Female : 1990 Arrival Date: 11/12/2019 Time: 01:33 Bed 5 Private MD: Diagnosis: Gastritis, unspecified, without bleeding Presentation: 11/11 01:47 Chief complaint: Patient states: Back pain that began around 2200 this evening, reports sg the pain now radiates into the epigastric area, reports vomiting x1 with nausea, history of having gall stones, denies fever/chills at this time for triage. Coronavirus screen: Proceed with normal triage. Ebola Screen: Patient negative for fever greater than or equal to 101.5 degrees Fahrenheit, and additional compatible Ebola Virus Disease symptoms Patient denies exposure to infectious person. Patient denies travel to an Ebola-affected area in the 21 days before illness onset. No symptoms or risks identified at this time. Initial Sepsis Screen: Does the patient meet any 2 criteria? No. Patient's initial sepsis screen is negative. Does the patient have a suspected source of infection? Yes: Acute abdominal pain. Risk Assessment: Do you want to hurt yourself or someone else? Patient reports no desire to harm self or others. Onset of symptoms was November 12, 2019. Care prior to arrival: None. Transition of care: patient was not received from another setting of care. 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 - Social history:: Smoking status: Patient denies any tobacco usage or history of. Screenin:03 Abuse screen: Denies threats or abuse. Denies injuries from another. Nutritional ao screening: No deficits noted. Tuberculosis screening: No symptoms or risk factors identified. Fall Risk None identified. Assessment: 01:58 General: Appears in no apparent distress. comfortable, Behavior is calm, cooperative, ao appropriate for age. Pain: Complains of pain in back and abdomen. Neuro: Level of Consciousness is awake, alert, obeys commands, Oriented to person, place, time, situation, Appropriate for age Facial symmetry appears normal. Cardiovascular: Capillary refill < 3 seconds Patient's skin is warm and dry. Respiratory: Airway is patent Respiratory effort is even, unlabored, Respiratory pattern is regular, symmetrical. GI: Abdomen is flat. : No signs and/or symptoms were reported regarding the genitourinary system. EENT: No signs and/or symptoms were reported regarding the EENT system. Derm: No signs and/or symptoms reported regarding the dermatologic system. Musculoskeletal: No signs and/or symptoms reported regarding the musculoskeletal system. Circulation, motion, and sensation intact. Range of motion: intact in all extremities. 02:00 Reassessment: Patient appears in no apparent distress at this time. Patient and/or ao family updated on plan of care and expected duration. Pain level reassessed. Patient is alert, oriented x 3, equal unlabored respirations, skin warm/dry/pink. Waiting on Lab work. 03:00 Reassessment: Patient appears in no apparent distress at this time. Patient and/or ao family updated on plan of care and expected duration. Pain level reassessed. Medicated and waiting on dispo orders. 04:16 Reassessment: Dc Instructions given to patient. Pt agree with POC and to follow up with ao PCP. Vital Signs: 01:47 Resp 18; Temp 97.7; Pulse Ox 100% on R/A; Weight 68.04 kg (R); Height 5 ft. 2 in. sg (157.48 cm) (R); Pain 8/10; 02:00 Pulse 90; Resp 16; Temp 98.0; Pulse Ox 100% ; ao 02:02 BP 110 / 75; ao 03:00 BP 112 / 76; Pulse 82; Resp 16; Pulse Ox 100% ; ao 04:00 BP 114 / 76; Pulse 76; Resp 16; Pulse Ox 98% on R/A; ao 01:47 Body Mass Index 27.44 (68.04 kg, 157.48 cm) ED Course: 01:33 Patient arrived in ED. ds1 01:37 Gilbert Jeffrey MD is Attending Physician. tw4 01:40 Keshawn Flores, RN is Primary Nurse. ao 01:47 Arm band placed on. sg 01:49 Triage completed. sg 02:03 Patient has correct armband on for positive identification. Pulse ox on. NIBP on. ao 02:04 Inserted saline lock: 20 gauge antecubital area, using aseptic technique. Blood ao collected. 02:10 Urine collected: clean catch specimen, clear. sg 04:16 No provider procedures requiring assistance completed. IV discontinued, intact, ao bleeding controlled, No redness/swelling at site. Pressure dressing applied. Administered Medications: 02:53 Drug: GI Cocktail without - (Maalox Suspension 30 ml, Lidocaine Liquid 2 % 15 ao ml) Route: PO; 04:06 Follow up: Response: No adverse reaction ao 02:53 CANCELLED (Duplicate Order): GI Cocktail without - (Maalox Suspension 30 ml, ao Lidocaine Liquid 2 % 15 ml) PO once Outcome: 04:06 Discharge ordered by tw4 04:16 Discharged to home ambulatory. ao 04:16 Condition: stable 04:16 Discharge instructions given to patient, Instructed on discharge instructions, follow up and referral plans. Demonstrated understanding of instructions, follow-up care, medications, Prescriptions given X 2. 04:19 Patient left the ED. ao Signatures: Jose Huerta, RN Gilma Berg ds1 Keshawn Flores RN RN ao Wadley, Terrence, MD MD tw4
--- NOTE | 2019-11-12 04:06 | EDPHYS ---
Physician Documentation [facility] Name: Esperanza Ross Age: 29 yrs Sex: Female : 1990 Arrival Date: 11/12/2019 Time: 01:33 Bed 5 Private MD: ED Physician Gilbert Jeffrey HPI: 11/11 02:01 This 29 yrs old Female presents to ER via Ambulatory with complaints of Upper tw4 Abd Pain. 02:02 This 29 yrs old Female presents to ER via Ambulatory with complaints of Upper tw4 Abd Pain. 02:01 The patient presents with abdominal pain. Onset: The symptoms/episode began/occurred tw4 today. 02:02 The symptoms radiate to back. Associated signs and symptoms: Pertinent positives: tw4 nausea and vomiting, vomiting, Pertinent negatives: blood in stools, chest pain, constipation, diarrhea, dysuria, fever, headache, hematuria, nausea, palpitations, shortness of breath, vaginal discharge, vomiting blood. The symptoms are described as sharp. Modifying factors: The symptoms are alleviated by nothing, the symptoms are aggravated by nothing. The patient has not experienced similar symptoms in the past. 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 - Social history:: Smoking status: Patient denies any tobacco usage or history of. ROS: 02:02 Constitutional: Negative for fever, chills, and weight loss, Eyes: Negative for injury, tw4 pain, redness, and discharge, Cardiovascular: Negative for chest pain, palpitations, and edema, Respiratory: Negative for shortness of breath, cough, wheezing, and pleuritic chest pain, Back: Negative for injury and pain, MS/Extremity: Negative for injury and deformity, Skin: Negative for injury, rash, and discoloration, Neuro: Negative for headache, weakness, numbness, tingling, and seizure. 02:02 Abdomen/GI: Positive for abdominal pain, nausea and vomiting, Negative for constipation, abdominal cramps, abdominal distension, anorexia, black/tarry stool, rectal pain, rectal bleeding, bowel incontinence. Exam: 02:02 Constitutional: This is a well developed, well nourished patient who is awake, alert, tw4 and in no acute distress. Head/Face: Normocephalic, atraumatic. Chest/axilla: Normal chest wall appearance and motion. Nontender with no deformity. No lesions are appreciated. Cardiovascular: Regular rate and rhythm with a normal S1 and S2. No gallops, murmurs, or rubs. Normal PMI, no JVD. No pulse deficits. Respiratory: Lungs have equal breath sounds bilaterally, clear to auscultation and percussion. No rales, rhonchi or wheezes noted. No increased work of breathing, no retractions or nasal flaring. Back: No spinal tenderness. No costovertebral tenderness. Full range of motion. MS/ Extremity: Pulses equal, no cyanosis. Neurovascular intact. Full, normal range of motion. Neuro: Awake and alert, GCS 15, oriented to person, place, time, and situation. Cranial nerves II-XII grossly intact. Motor strength 5/5 in all extremities. Sensory grossly intact. Cerebellar exam normal. Normal gait. 02:02 Abdomen/GI: Inspection: abdomen appears normal, Bowel sounds: normal, Palpation: mild abdominal tenderness, in the epigastric area. Vital Signs: 01:47 Resp 18; Temp 97.7; Pulse Ox 100% on R/A; Weight 68.04 kg (R); Height 5 ft. 2 in. sg (157.48 cm) (R); Pain 8/10; 02:00 Pulse 90; Resp 16; Temp 98.0; Pulse Ox 100% ; ao 02:02 BP 110 / 75; ao 03:00 BP 112 / 76; Pulse 82; Resp 16; Pulse Ox 100% ; ao 04:00 BP 114 / 76; Pulse 76; Resp 16; Pulse Ox 98% on R/A; ao 01:47 Body Mass Index 27.44 (68.04 kg, 157.48 cm) sg MDM: 02:01 Patient medically screened. tw4 02:02 Differential diagnosis: gastritis, gastroesophageal reflux disease, non-specific abd tw4 pain, Peptic Ulcer Disease, Perf. Duodenal Ulcer. Data reviewed: vital signs, nurses notes. Counseling: I had a detailed discussion with the patient and/or guardian regarding: the historical points, exam findings, and any diagnostic results supporting the discharge/admit diagnosis. 11/11 01:38 Order name: Basic Metabolic Panel; Complete Time: 04:04 tw4 11/11 04:04 Interpretation: Normal except: K 3.1; GFR 87. tw4 11/11 01:38 Order name: CBC with Diff; Complete Time: 04:04 tw4 11/11 04:04 Interpretation: Normal except: WBC 12.4; MCV 87.9. tw4 11/11 01:38 Order name: Hepatic Function; Complete Time: 04:04 tw4 11/11 04:04 Interpretation: Normal except: A/G 1.0; GLOB 4.0. 4 11/11 01:38 Order name: Lipase; Complete Time: 04:04 tw4 11/11 04:04 Interpretation: Within normal limits: LIP 76. tw4 11/11 02:12 Order name: Urine Dipstick--Ancillary (enter results) sg 11/11 02:13 Order name: Urine --Ancillary (enter results) 11/11 01:38 Order name: IV Saline Lock; Complete Time: 02:24 tw4 11/11 01:38 Order name: Labs collected and sent; Complete Time: 02:25 tw4 11/11 02:08 Order name: Urine Dipstick-Ancillary (obtain specimen); Complete Time: 02:10 ao 11/11 02:16 Order name: Urine --Ancillary; Complete Time: 04:04 EDOH 11/11 04:04 Interpretation: Within normal limits: URINE PREG NEG. tw4 11/11 02:16 Order name: Urine Dipstick-Ancillary; Complete Time: 04:04 EDMS 11/11 04:04 Interpretation: Normal except: UPH 8.0; UBLD 1+. tw4 Administered Medications: 02:53 Drug: GI Cocktail without - (Maalox Suspension 30 ml, Lidocaine Liquid 2 % 15 ao ml) Route: PO; 04:06 Follow up: Response: No adverse reaction ao 02:53 CANCELLED (Duplicate Order): GI Cocktail without - (Maalox Suspension 30 ml, ao Lidocaine Liquid 2 % 15 ml) PO once Disposition: 11/12/19 04:06 Discharged to Home. Impression: Gastritis, unspecified, without bleeding. - Condition is Stable. - Discharge Instructions: Gastritis, Adult. - Prescriptions for Pepcid 20 mg Oral Tablet - take 1 tablet by ORAL route every 12 hours for 10 days; 20 tablet. Zofran 4 mg Oral Tablet - take 1 tablet by ORAL route every 12 hours As needed; 6 tablet. - Medication Reconciliation Form, Thank You Letter, Antibiotic Education, Prescription Opioid Use form. - Follow up: Private Physician; When: Upon discharge from the Emergency Department; Reason: Recheck today's complaints, Continuance of care, Re-evaluation by your physician. - Problem is new. - Symptoms have improved. 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 tw4 tw4 02:53 02:53 GI Cocktail without - (Maalox 30 ml, Lidocaine 15 ml) PO once ordered. aoao 04:19 04:06 11/12/2019 04:06 Discharged to Home. Impression: Gastritis, unspecified, without ao bleeding. Condition is Stable. Forms are Medication Reconciliation Form, Thank You Letter, Antibiotic Education, Prescription Opioid Use. Follow up: Private Physician; When: Upon discharge from the Emergency Department; Reason: Recheck today's complaints, Continuance of care, Re-evaluation by your physician. Problem is new. Symptoms have improved. tw4
[2019-11-12 05:22] VITALS: TEMP 98
[2019-11-12 05:26] VITALS: BP 114/76; O2SAT 98
== END 2019-11-12 04:19 | disposition home or self-care (01) ==
LOC: ER 01:31
DX: K29.70 Gastritis, unspecified, without bleeding (principal)
CPT/HCPCS: 36415; 80048; 80076; 81003; 81025; 83690; 85025; 99284